=== PATIENT | male | born 1995 | race Caucasian/White ===

== ENCOUNTER 2016-10-30 17:55 | Emergency (ER) | payer OTHER ==
[~2016-10-30] VITALS: Ht 190.5 cm; Wt 77.1 kg
[2016-10-30 18:22] VITALS: BP 117/84
== END 2016-10-30 19:59 | disposition home or self-care (01) ==
LOC: ER 17:55
DX: Z02.83 Encounter for blood-alcohol and blood-drug test (principal); Z04.3 Encounter for examination and observation following other accident

== ENCOUNTER → 2017-06-14 | Outpatient (CLI) | payer OTHER ==
[2017-06-14 10:45] LABS: Hepatitis B Surface Antibody Negative
[2017-06-14 11:04] LABS: Hepatitis B Surface Antigen Negative (Negative)
== END | disposition home or self-care (01) ==
LOC: LAB 09:42
PROVIDERS: ATTEND Preventive Medicine Preventive Medicine/Occupational Environmental Medicine
DX: Z77.21 Contact with and (suspected) exposure to potentially hazardous body fluids (principal)
CPT/HCPCS: 36415; 86703; 86706; 86803; 87340